=== PATIENT | male | born 1990 | race Caucasian/White ===

== ENCOUNTER 2022-09-24 09:03 | Inpatient (IN) | payer OTHER ==
[~2022-09-24] VITALS: Ht 175.3 cm; Wt 146.5 kg
[2022-09-24 09:40] LABS: BASO% 0.4 % (0-3); HEMOGLOBIN 14.2 g/dl (14.0-18.0); IMMATURE GRANULOCYTES 0.1 % (0.0-5.0); LYMPH% 27.1 % (15-41); MEAN CELL VOLUME 81.6 fL CALC (80.0-100.0); MEAN CORPUSCULAR HGB 26.3 pG CALC (26.0-32.0); MEAN CORPUSCULAR HGB CONC 32.3 g/dL CAL (32.0-36.0); MONO% 6.9 % (2-13); NEUT# 5.79 thou/uL (1.82-7.42); NEUT% 64.5 % (42-76); RED BLOOD COUNT 5.39 mill/uL (4.70-6.10); RED CELL DISTRI WIDTH 12.9 % (11.5-15.5)
[2022-09-24] MEDS ORDERED: PROZAC10 MG PO (09:42)
[2022-09-24 09:53] LABS: ALBUMIN 4.6 g/dL (3.2-5.0); ALKALINE PHOSPHATASE 96 u/l (38-126); ANION GAP 13 (6-22 (CALC)); BILIRUBIN, TOTAL 0.4 mg/dL (0.2-1.3); BUN 11 mg/dL (9-20); BUN/CREATININE RATIO 16 (12-20 (CALC)); CHLORIDE 104 mmol/l (95-108); CREATININE 0.7 mg/dL (0.7-1.3); GFR FOR AFR.AMER. > 60 ML/MIN (>=60 (CALC)); GFR OTHER RACES > 60 ML/MIN (>=60 (CALC)); POTASSIUM 3.8 mmol/l (3.5-5.1); SGOT/AST 36 u/l (17-59); SODIUM 141 mmol/l (137-146); TOTAL PROTEIN 7.8 g/dL (6.3-8.2)
[2022-09-24 09:56] LABS: CARBON DIOXIDE 28 mmol/l (22-30)
[2022-09-24 18:04] VITALS: BP 131/68
[2022-09-25] VITALS: BP 121/63
[2022-09-25 03:47] VITALS: BP 102/53
[2022-09-25 05:57] LABS: BASO% 0.7 % (0-3); EOS% 1.5 % (0-8); HEMATOCRIT 43.2 % (39.0-50.0); HEMOGLOBIN 14.3 g/dl (14.0-18.0); IMMATURE GRANULOCYTES 0.1 % (0.0-5.0); LYMPH% 33.5 % (15-41); MEAN CELL VOLUME 83.1 fL CALC (80.0-100.0); MEAN CORPUSCULAR HGB 27.5 pG CALC (26.0-32.0); MEAN CORPUSCULAR HGB CONC 33.1 g/dL CAL (32.0-36.0); MONO% 6.1 % (2-13); NEUT# 4.32 thou/uL (1.82-7.42); NEUT% 58.1 % (42-76); RED BLOOD COUNT 5.2 mill/uL (4.70-6.10)
[2022-09-25 06:20] LABS: ANION GAP 12 (6-22 (CALC)); BUN 10 mg/dL (9-20); BUN/CREATININE RATIO 15 (12-20 (CALC)); CALCULATED LDLCHOLESTEROL 113 mg/dL (62-129 (CALC)); CARBON DIOXIDE 26 mmol/l (22-30); CHLORIDE 106 mmol/l (95-108); CHOLESTEROL HDL RATIO 10.6 (<4.4 (CALC)); CREATININE 0.7 mg/dL (0.7-1.3); GFR FOR AFR.AMER. > 60 ML/MIN (>=60 (CALC)); GFR OTHER RACES > 60 ML/MIN (>=60 (CALC)); HDL CHOLESTEROL 19 mg/dL (39.0-59.0); MAGNESIUM 1.9 mg/dL (1.6-2.3); POTASSIUM 4.1 mmol/l (3.5-5.1); SODIUM 140 mmol/l (137-146); TOTAL CHOLESTEROL 205 mg/dl (0-199); TOTAL TRIGLYCERIDES 367 mg/dl (0-149); VLDL CHOLESTROL 73 mg/dl (5-56 (CALC))
[2022-09-25 08:10] VITALS: BP 117/59
[2022-09-25 11:12] VITALS: BP 126/69
== END 2022-09-25 15:58 | DRG 93 ==
LOC: ED 09:03 → ED-I 15:00 → ED 15:11 → MS2 15:12
PROVIDERS: Family Medicine; ADMIT Student in an Organized Health Care Education/Training Program; ATTEND Student in an Organized Health Care Education/Training Program
DX: R20.2 Paresthesia of skin (principal); R07.9 Chest pain, unspecified; R20.0 Anesthesia of skin; F32.A Depression, unspecified; H55.00 Unspecified nystagmus
CPT/HCPCS: J1650; Q9967